=== PATIENT | female | born 1980 | race Two or more races ===

== ENCOUNTER 2020-03-23 10:01 | Emergency (ER) | payer OTHER ==
[~2020-03-23] VITALS: Ht 167.6 cm; Wt 56.5 kg
[2020-03-23 10:04] VITALS: BP 105/74
== END 2020-03-23 11:05 | disposition home or self-care (01) ==
LOC: ED 11:03
DX: U07.1 COVID-19 (principal); J06.9 Acute upper respiratory infection, unspecified
CPT/HCPCS: 87635; 99283